=== PATIENT | female | born 1950 | race Caucasian/White ===

== ENCOUNTER → 2023-10-22 09:29 | Outpatient (REF) | payer MEDICARE, OTHER, SELFPAY | LOC: HWRAD 09:29 | PROVIDERS: ATTENDING PHYSICIAN Family Medicine | DX: M85.89 Other specified disorders of bone density and structure, multiple sites (principal) | CPT/HCPCS: 77080 ==

== ENCOUNTER → 2023-12-04 11:42 | Outpatient (REF) | payer MEDICARE, OTHER, SELFPAY | LOC: HWRAD 11:42 | PROVIDERS: ATTENDING PHYSICIAN Internal Medicine Critical Care Medicine; FAMILY PHYSICIAN Family Medicine | DX: R91.1 Solitary pulmonary nodule (principal) | CPT/HCPCS: 71250 ==

== ENCOUNTER → 2024-03-11 14:18 | Outpatient (REF) | payer MEDICARE, OTHER, SELFPAY | LOC: HWWDC 14:18 | PROVIDERS: ATTENDING PHYSICIAN Family Medicine | DX: Z12.31 Encounter for screening mammogram for malignant neoplasm of breast (principal) | CPT/HCPCS: 77063; 77067 ==

== ENCOUNTER → 2024-03-22 09:58 | Outpatient (REF) | payer MEDICARE, OTHER, SELFPAY | LOC: RAD 09:58 | PROVIDERS: ATTENDING PHYSICIAN Specialist; FAMILY PHYSICIAN Family Medicine | DX: N13.1 Hydronephrosis with ureteral stricture, not elsewhere classified (principal) | CPT/HCPCS: 78708; A9539 ==

== ENCOUNTER → 2024-03-24 10:56 | Outpatient (REF) | payer MEDICARE, OTHER, SELFPAY ==
[2024-03-24 12:21] LABS: Urine Albumin Trace (Neg - Trace); Urine Bilirubin 1+ (Negative); Urine Character Clear (Clear); Urine Color Yellow; Urine Glucose Negative (Negative); Urine Ketone Negative (Negative); Urine Leukocyte Trace (Negative); Urine Nitrite Negative (Negative); Urine Occult Blood Negative (Negative); Urine Urobilinogen Negative (Neg - 1+)
[2024-03-24 12:36] LABS: Urine Bacteria Few (Negative); Urine Mucus Moderate; Urine Red Blood Cell 0-2 /HPF (0-2); Urine Squamous Cell 0-2 /LPF (Few); Urine White Cell 0-2 /HPF (0-5)
[2024-03-24 12:37] LABS: % Basophils 1.3 % (0-2); % Immature Granulocytes 0.2 % (0-0.5); % Lymphocytes 15.4 % (20.5-51.1); % Monocytes 8.7 % (1.7-9.3); % Neutrophils 72.4 % (42.2-75.2); Absolute Basophils 0.1 10^3/uL (0-0.2); Absolute Eosinophils 0.1 10^3/uL (0-0.7); Absolute Lymphocytes 0.7 10^3/uL (1.2-3.4); Absolute Monocytes 0.4 10^3/uL (0.1-0.6); Absolute Neutrophils 3.3 10^3/uL (1.4-6.5); Hematocrit 39.8 % (37.0-47.0); Mean Corp Hgb Conc. 35.2 g/dL (33.0-37.0); Mean Corpuscular Hgb 31.6 pg (27.0-31.0); Mean Corpuscular Volume 89.8 fL (81.0-99.0); Mean Platelet Volume 9.9 fL (7.4-10.4); Nucleated Red Blood Cells % 0 %; Platelet Count 140 10^3/uL (130-400); Red Blood Cell Count 4.43 10^6/uL (4.20-5.40); White Blood Cell Count 4.6 10^3/uL (4.8-10.8)
[2024-03-24 12:47] LABS: ALT (SGPT) 17 U/L (0-35); AST (SGOT) 28 U/L (14-36); Albumin 4.8 g/dl (3.5-5.0); Alkaline Phosphatase 68 U/L (38-126); Blood Urea Nitrogen 24 mg/dl (7-17); Carbon Dioxide 22 mmol/L (22-30); Chloride 107 mmol/L (98-107); Glucose 107 mg/dl (70-99); HDL Cholesterol 79 mg/dl; LDL Cholesterol, Calculated 66 mg/dl; Potassium 4.1 mmol/L (3.5-5.1); Sodium 143 mmol/L (135-145); Total Bilirubin 0.9 mg/dl (0.2-1.3); Total Cholesterol 168 mg/dl (50-199); Total Protein 7.1 g/dl (6.3-8.2); Triglyceride 116 mg/dl (10-149); Very Low Density Lipoprotein 23 mg/dl (0-30); eGFR > 60.00
[2024-03-24 13:00] LABS: Free T4 1.17 ng/dl (0.78-2.19); Vitamin D, 25-OH*** 37.5 ng/mL (30-80)
[2024-03-24 13:13] LABS: TSH 1.09 uIU/ml (0.47-4.68)
== END ==
LOC: HWLAB 10:56
PROVIDERS: ATTENDING PHYSICIAN Specialist; FAMILY PHYSICIAN Family Medicine
DX: N20.0 Calculus of kidney (principal); E04.2 Nontoxic multinodular goiter; M85.89 Other specified disorders of bone density and structure, multiple sites; L40.9 Psoriasis, unspecified; A31.0 Pulmonary mycobacterial infection; Z86.73 Personal history of transient ischemic attack (TIA), and cerebral infarction without residual deficits
CPT/HCPCS: 36415; 74018; 80053; 80061; 81003; 81015; 82306; 84439; 84443; 85025

== ENCOUNTER → 2024-04-22 08:25 | Outpatient (REF) | payer MEDICARE, OTHER, SELFPAY | LOC: RST 08:25 | PROVIDERS: ATTENDING PHYSICIAN Family Medicine | DX: R13.12 Dysphagia, oropharyngeal phase (principal) | CPT/HCPCS: 74230; 92611 ==

== ENCOUNTER → 2024-04-27 13:14 | Outpatient (REF) | payer MEDICARE, OTHER, SELFPAY | LOC: HWRAD 13:14 | PROVIDERS: ATTENDING PHYSICIAN Internal Medicine Critical Care Medicine; FAMILY PHYSICIAN Family Medicine; OTHER PHYSICIAN Specialist; REFERRING PHYSICIAN Specialist | DX: A31.0 Pulmonary mycobacterial infection (principal) | CPT/HCPCS: 71250 ==

== ENCOUNTER → 2024-05-06 06:35 | Day surgery (SDC) | payer MEDICARE, OTHER, SELFPAY | LOC: GI 06:35 | PROVIDERS: ATTENDING PHYSICIAN Specialist; FAMILY PHYSICIAN Family Medicine | DX: R13.10 Dysphagia, unspecified (principal); R12 Heartburn; K31.89 Other diseases of stomach and duodenum; K22.89 Other specified disease of esophagus; K21.00 Gastro-esophageal reflux disease with esophagitis, without bleeding | CPT/HCPCS: 43239; 88305; 88342 ==

== ENCOUNTER → 2024-05-18 10:06 | Outpatient (REF) | payer MEDICARE, OTHER, SELFPAY | LOC: HWRCS 10:06 | PROVIDERS: ATTENDING PHYSICIAN Internal Medicine Critical Care Medicine; FAMILY PHYSICIAN Family Medicine | DX: R91.1 Solitary pulmonary nodule (principal) | CPT/HCPCS: 93306 ==

== ENCOUNTER 2024-11-22 06:23 | Day surgery (SDC) | payer MEDICARE, OTHER, SELFPAY ==
[2024-11-16 13:43] VITALS: BMI 32.1
[2024-11-22] VITALS (11 sets, daily range): BP systolic 117–157; BP diastolic 55–82; BMI 32.1
[2024-11-22] MEDS: Pyridium 200 MG PO (11:37)
[2024-11-22] MEDS: NORMOSOL-R/PLASMALYTE-A 1000 IV (11:47)
[2024-11-22] MEDS: HEPARIN 5000 UNITS SC (13:34)
== END 2024-11-22 17:50 | disposition home or self-care (01) ==
LOC: SDS 06:23
PROVIDERS: ATTENDING PHYSICIAN Obstetrics & Gynecology; FAMILY PHYSICIAN Family Medicine
DX: N81.6 Rectocele (principal)
CPT/HCPCS: 57282; 57250; C1713

== ENCOUNTER 2024-12-19 16:34 | Inpatient (IN) | payer MEDICARE, OTHER, SELFPAY ==
[2024-12-19] VITALS (8 sets, daily range): BP systolic 113–150; BP diastolic 55–99; BMI 34.0; BMI 31.7
[2024-12-19] MEDS: TYLENOL 1000 MG PO ×2 (11:50→16:09)
[2024-12-19] MEDS: NSS 1000 IV ×2 (11:51→18:38)
--- NOTE | 2024-12-19 11:51 | ED.GENMED ---
History of Present Illness
General
Chief Complaint: Fever
Source: patient
Exam Limitations: none
Time Seen by Provider: 12/19/24 11:14
Nursing documentation reviewed up to this point in time: agreed with
History of Present Illness
History of Present Illness:
pt is a 74 y/o F with h/o TIA/TGA, kidney stones/staghorn calculus (tea, s/p surgery 2021),
1 mo ago had rectocele surgery by dr jo
has had ongoign urinary leakage since the procedure, which dr. jo is aware of and says likely is just due to swelling/inflammatoin as things heal
but over the past 2-3 days she has had intermittent L flank pain with abdomianl bloating, comes and goes sponateously reminding her of a kidney stone
and now she has a fever to 102, took tylenol at 530 am
developed cough this am
initially staed in triage that she couldn't take a deep breath but she can to me
she is on a blood thinner
pt has not ahd any gross hematuria, hemoptysis, pleuritic cp, leg swelling, vaignl bleeding, rectal bleeding, constipation, vomiting
Past History
Past History
ED Past Medical History: HTN, Hypercholesterolemia and Other (Transient global amnesia)
ED Past Surgical History: Gynecological, Tonsilectomy and Other
Social History
Tobacco: Non-smoker
Personal:
Living: with family
Employment: Retired
Review of Systems
Review of Systems
Allergies reviewed?: Yes
All Other Systems: Not applicable
Phy Exam
Physical Exam
Physical Exam:
GENERAL: Alert , in no apparent distress; FEBRILE
EYE: pupils equal and reactive
NECK: Supple
ENT: o/p clr, mmm.
CARDIAC: Regular rate and rhythm .
LUNGS: Clear breath sounds bilaterally, no acute respiratory distress, no wheezes/rales/rhonchi
ABDOMEN: Soft, mildly distended, nontender, no guarding or rebound, mild L CVA TENDERNESS
region, no secretions, erythema, skin changes,
NEUROLOGICAL: Alert and oriented, no focal neuro deficits
SKIN: Warm and dry, skin intact.
MUSCULOSKELETAL: No edema, well perfused. neg joaquin's sign
PSYCH: Normal and appropriate interaction.
Course
Orders/Labs/Results
Orders:
Orders
12/19/24 11:28
Complete Blood Count/With Diff Urgent
Comprehensive Metabolic Panel Urgent
Lactic Acid Urgent
Blood Culture Urgent
THERESA Source: Blood/Venous
Specimen Description:
Blood Culture Urgent
THERESA Source: Blood/Venous
Specimen Description:
12/19/24 11:41
CT Abd/Pel (IV only)-DH only Urgent
Comment: rectocele surgery 1 mo ago
Reason For Exam: L flank pain x 2days with urine incontinence, feve
Straight cath- Treatment ONCE
0.9% Sodium Chloride 1000 ml [Nss] 1,000 ml IV BOLUS
Acetaminophen [Tylenol] 1,000 mg PO NOW STA
12/19/24 11:42
CR Chest - 2 Views Urgent
Comment:
Reason For Exam: fever,k cough
12/19/24 12:01
COVID-19 Antigen Urgent
Source: Nasal Swab
Urinalysis Reflex To Culture Urgent
Date Specimen was Collected: 12/19/24
Time Specimen was Collected: 11:43
Urine Microscopic Reflex Cult Urgent
Influenza A+B Rapid Molecular Urgent
THERESA Source: Nasal Swab
Specimen Description:
Urine Culture Urgent
THERESA Source: U
Specimen Description:
Date Specimen was Collected: 12/19/24
Time Specimen was Collected: 11:43
12/19/24 12:24
CefTRIAXone [Rocephin] 2,000 mg IV NOW STA
12/19/24 12:32
Sterile Water [Sterile Water For Injection] 20 ml .ROUTE .STK-MED
Abnormal Lab Results
12/19/24 12/19/24
11:28 12:01
MCH 31.1 H pg
(27.0-31.0)
Absolute Neuts (auto) 7.2 H 10^3/uL
(1.4-6.5)
Absolute Lymphs (auto) 0.3 L 10^3/uL
(1.2-3.4)
Neutrophils % 89.1 H %
(42.2-75.2)
Lymphocytes % 4.1 L %
(20.5-51.1)
Chloride 109 H mmol/L
(98-107)
BUN 18 H mg/dl
(7-17)
Glucose 124 H mg/dl
(70-99)
Ur Occult Blood Reflex 4+ A
(Negative)
Leukocyte Esterase Rfl 3+ A
(Negative)
Urine RBC 3-6 A /HPF
(0-2)
Urine WBC (Reflex) 26-30 A /HPF
(0-5)
Urine Bacteria (Reflex) Few A
(Negative)
Urine Albumin (Reflex) 2+ A
(Neg - Trace)
12/19/24 11:28
12/19/24 11:28
Vital Signs
Initial and Last Documented VS:
Initial Vital Signs
Temp Pulse Resp BP Pulse Ox
38.5 C H 87 16 120/86 93
12/19/24 10:49 12/19/24 10:49 12/19/24 10:49 12/19/24 10:49 12/19/24 10:49
Last Documented Vital Signs
Temp Pulse Resp BP Pulse Ox
37.4 C 68 18 130/67 94
12/19/24 12:41 12/19/24 13:00 12/19/24 13:00 12/19/24 14:22 12/19/24 14:22
MDM/Problems Addressed
Differential Diagnosis Includes:
pyelo, infected kidney stone, uti, sepsis, pna, pe
MDM/Problems Addressed:
74 y/o F with h/o rectocele surgery 1 mo ago (sandro)
h/o kidney stones
fever and L flank pain
febrile, normal lactic, wbc normal
ct shows pyelo and ureteritis;
rocephin, cultlured;
*Critical Care Note
Total Time (30-74mins, 75-104mins- exclusive of procedures): Not Applicable
ED Attending Note
-
Portions of this chart may have been created with voice recognition software.� Occasional wrong word or��sound alike� substitutions may have occurred due to the inherent limitations of voice recognition software.
Discharge Plan
Departure
Patient Disposition: Admit
Date of Disposition: 12/19/24
Time of Disposition: 14:30
Presentation/result/management discussed w/ accepting MD/DO: Hospitalist
Patient with high blood pressure during this ER visit?: No
Condition: Fair
Covid-19: Not Applicable
Discharge Problem:
Pyelonephritis
Prescriptions:
No Action
atorvastatin 40 MG tablet
40 mg PO HS
sertraline 100 mg Tablet
100 mg PO DAILY
aspirin-dipyridamole [Aggrenox] 25-200 mg Capsule, Er Multiphase 12 Hr
1 cap PO BID
acetaminophen [Tylenol] 325 mg Tablet
650 mg PO Q6HPRN PRN (Reason: mild pain)
Referrals:
Delmi Bunch MD [Family Provider] -
Interventions
Interventions:
*Risk Screen - Suicide Last Done: 12/19/24 11:26
*General Assessment Last Done: 12/19/24 11:26
*Neglect/Abuse Screening Last Done: 12/19/24 11:26
*ED- Fall Risk Assessment Last Done: 12/19/24 11:26
*ED COVID-19 Vaccine History Last Done: 12/19/24 11:26
RD-Ufsuda-Iawfljownw Assessment Last Done: 12/19/24 11:42
ED- Neurological Assessment Last Done: 12/19/24 11:42
ED-Skin Assessment Last Done: 12/19/24 11:42
Discharge Date and Time
Print Language: KHMER
[2024-12-19 11:55] LABS: % Basophils 0.2 % (0-2); % Eosinophils 0.1 % (0-6); % Immature Granulocytes 0.1 % (0-0.5); % Lymphocytes 4.1 % (20.5-51.1); % Monocytes 6.4 % (1.7-9.3); % Neutrophils 89.1 % (42.2-75.2); Absolute Lymphocytes 0.3 10^3/uL (1.2-3.4); Absolute Monocytes 0.5 10^3/uL (0.1-0.6); Absolute Neutrophils 7.2 10^3/uL (1.4-6.5); Hematocrit 40.8 % (37.0-47.0); Hemoglobin 14.1 g/dL (12.0-16.0); Mean Corp Hgb Conc. 34.6 g/dL (33.0-37.0); Mean Corpuscular Hgb 31.1 pg (27.0-31.0); Mean Corpuscular Volume 89.9 fL (81.0-99.0); Mean Platelet Volume 9.8 fL (7.4-10.4); Nucleated Red Blood Cells % 0 %; Platelet Count 142 10^3/uL (130-400); Red Blood Cell Count 4.54 10^6/uL (4.20-5.40); Red Cell Dist. Width 11.9 % (11.5-14.5); White Blood Cell Count 8.1 10^3/uL (4.8-10.8)
[2024-12-19 11:58] LABS: Lactic Acid 0.9 mmol/L (0.7-2.0)
[2024-12-19 11:59] LABS: ALT (SGPT) 19 U/L (0-35); AST (SGOT) 23 U/L (14-36); Albumin 4.8 g/dl (3.5-5.0); Alkaline Phosphatase 71 U/L (38-126); Blood Urea Nitrogen 18 mg/dl (7-17); Calcium 9.6 mg/dl (8.4-10.2); Carbon Dioxide 22 mmol/L (22-30); Chloride 109 mmol/L (98-107); Estimated Creatinine Clearance 64 ml/min; Glucose 124 mg/dl (70-99); Sodium 139 mmol/L (135-145); Total Bilirubin 0.9 mg/dl (0.2-1.3); Total Protein 7.6 g/dl (6.3-8.2); eGFR > 60.00
[2024-12-19 12:15] LABS: Urine Albumin 2+ (Neg - Trace); Urine Bilirubin Negative (Negative); Urine Character Slightly Cloudy (Clear); Urine Color Yellow; Urine Glucose Negative (Negative); Urine Ketone Negative (Negative); Urine Leukocyte 3+ (Negative); Urine Nitrite Negative (Negative); Urine Occult Blood 4+ (Negative); Urine Specific Gravity 1.015 (<1.030); Urine Urobilinogen Negative (Neg - 1+)
[2024-12-19 12:23] LABS: Urine Bacteria Few (Negative); Urine White Cell 26-30 /HPF (0-5)
[2024-12-19 12:32] LABS: COVID-19 Antigen Negative (Negative)
[2024-12-19] MEDS: ROCEPHIN 2000 MG IV (12:33)
--- NOTE | 2024-12-19 16:08 | HPS.HSE ---
Addendum entered and electronically signed by Brenda Jc MD 12/19/24 18:15:
I personally performed a history and physical exam of the patient and discussed management with the resident. I reviewed the resident's note and agree with the documented findings and plan of care HPI/CC.
GENERAL: well developed, well nourished, female in no apparent distress, cold and wrapped up in blankets
HEENT: NC/AT
HEART: regular rate and rhythm, +S1, +S2
LUNGS : clear to auscultation bilaterally
ABDOM: soft, nontender, nondistended, + bowel sounds
EXT: no cyanosis, clubbing, or edema
NEUROLOGIC: starting to become a bit wifty/confused
: no CVA tenderness
Pyelonephritis with developing sepsis and acute hypoxemic respiratory insufficiency (POA)--admit--follow cultures--cont unasyn/IVF--lactic acid and WBC WNL--CT abdomen: 2 nephroliths within the posterior aspect of the upper pole the left kidney. No
evidence for ureteral calculus bilaterally. Findings suspicious for pyelonephritis and cystitis--supplemental O2 as needed--pain/temp management
Shortness of breath likely due to pain/sepsis� Negative for flu/COVID�CXR unremarkable� Echo 04/2024 (pericardial effusion indication): EF 60 to 65%, mild aortic regurgitation�Supplemental O2, wean as tolerated
Hx of lacunar stroke/transient global amnesia� Continue Aggrenox
Hyperlipidemia- Continue statin
Depression� Continue sertraline
History of lung nodule� Follows with sweatband decorating machine operator outpatient
ALEXANDER� Has not used CPAP in many years� Recommend outpatient follow-up
DVT Proph�Aggrenox, SCDs
Limited DNR�no intubation
Original Note:
Family Physician
-
Family Physician: Delmi Bunch
Chief Complaint
-
Left flank pain
History of Present Illness
This is a 74 year old female patient with PMH of depression, hx of staghorn calculus, transient global amnesia/lacunar infart who presents to the ER with concerns of left sided flank pain and fever. She states that a month ago on 11/22, she
underwent surgery for posterior vaginal wall prolapse. Since then she has not faced any major issues with recovery besides urinary incontinence which her urogynecologist was aware of and sensation of bloating. Then for the past 2-3 days she started
to experience L sided flank pain which was sharp, radiating to the groin and intermittent. She also experienced a low grade fever that was 101 on Friday. She had taken Tylenol and she was symptom free until last night when fever/flank pain had
returned which prompted her to arrive to the hospital. She denies any nausea/vomiting or abdominal pain.
She also states that she has had shortness of breath of the past few years but noticed that it recently had started to worsen over the past few weeks. She denies having sob at rest but is symptomatic when she has to climb a flight of stairs or long
hallway. She had a single brief period of palpitations yesterday but has not experienced this before. She denies any CP, dizziness or lightheadedness.
Medical History
Past Medical History
Past Medical History: Reports CVA, HTN, Hypercholesterolemia, Psychiatric (Depression) and Other (Transient global amnesia, history of staghorn calculus, ALEXANDER, history of lung nodule, history of pericardial effusion)
Past Surgical History: Reports Cholecystectomy and Other (Cataract surgery, repair of vaginal wall prolapse)
Social History
Tobacco: Former Smoker (Smoked for 27 years, 1 pack/day, quit in )
Alcohol: Occasional
Drug: None
Living: Alone (Next-door to family)
Family History
Family History: Not pertinent
Allergies / Home Medications
Allergies reflects when Allergies were last updated in [employer].
Home Medications with original date entered in [employer]
Allergy/Medication List:
Allergies
Allergy/AdvReac Type Severity Reaction Status Date / Time
adhesive tape [Adhesive Tape] Allergy Itching Verified 12/19/24 10:52
azithromycin [From Zithromax] Allergy Hives Verified 12/19/24 10:52
cosmetic Allergy 'PURPLE Verified 12/19/24 10:52
EYE
SHADOW' -
EYE
SWELLING
nickel [Nickel] Allergy sores, Verified 12/19/24 10:52
bleeding
Home Medications
atorvastatin 40 mg tablet 40 mg PO HS High cholesterol 08/04/18
sertraline 100 mg tablet 100 mg PO DAILY Mental Health/Anxiety 02/05/22
acetaminophen 325 mg tablet (Tylenol) 650 mg PO Q6HPRN PRN mild pain 12/19/24
aspirin 25 mg-dipyridamole 200 mg capsule,ext.release 12 hr multiphase 1 cap PO BID 12/19/24
Review of Systems
-
A 12 point ROS was completed and negative except as noted: Yes
Constitutional: Reports Fever
Respiratory: Reports Trouble Breathing
Cardiac: Reports Palpitations (Yesterday)
Abdomen/GI: Denies Abdominal Pain, Nausea or Vomiting
: Reports Flank Pain and Incontinence
Physical Exam
Vital Signs
Vital Signs
Temp Pulse Resp BP Pulse Ox
99.2 F 69 17 130/67 97
12/19/24 15:58 12/19/24 14:45 12/19/24 14:45 12/19/24 14:22 12/19/24 14:45
Physical Exam
General: Well Developed and Fever
HEENT: NormoCephalic and Anicteric
Respiratory: Clear
Cardiac: S1/S2 and Regular Rhythm
GI: Soft, Non Distended and Tender (Mildly tender near B/L groin area)
Musculoskeletal: No Clubbing and No Edema
Skin: Warm and Dry
Neuro: Awake, Alert and Oriented
Laboratory Results
-
12/19/24 11:28
12/19/24 11:28
Laboratory Results
Lactic Acid 0.9 mmol/L (0.7-2.0) 12/19/24 11:28
Total Bilirubin 0.9 mg/dl (0.2-1.3) 12/19/24 11:28
AST 23 U/L (14-36) 12/19/24 11:28
ALT 19 U/L (0-35) 12/19/24 11:28
Alkaline Phosphatase 71 U/L (38-126) 12/19/24 11:28
Impression/Plan
-
IMPRESSION: This is a 74 year old female patient with PMH of depression, hx of staghorn calculus, transient global amnesia/lacunar infart who presents to the ER with concerns of left sided flank pain and fever.
PLAN:
#Pyelonephritis with developing sepsis
#Hypoxia
� Meet sepsis criteria with fever, tachypnea, and pyelonephritis
�Lactic acid wnl, WBC wnl
-CT abdomen:2 nephroliths within the posterior aspect of the upper pole the left kidney. No evidence for ureteral calculus bilaterally. Findings suspicious for pyelonephritis and cystitis
�U/a showed increased WBC and few bacteria--> urine culture pending
� Started broad coverage ABX Unasyn --> blood culture pending
� Continue IVF
� Hypoxia (O2 levels dipping to 89) likely due to sepsis, start supplemental O2 and wean as tolerated
� Pain management with IV Toradol Tylenol and Dilaudid
#Shortness of breath likely due to pain/sepsis
� Negative for flu/COVID
�CXR unremarkable
� EKG ordered due to brief single episode of palpitations yesterday
� Echo 04/2024 (pericardial effusion indication): EF 60 to 65%, mild aortic regurgitation
�Supplemental O2, wean as tolerated
#Hx of lacunar stroke/transient global amnesia
� Continue Aggrenox
#Hyperlipidemia
- Continue statin
#Depression
� Continue sertraline
#History of lung nodule
� Follows with sweatband decorating machine operator outpatient
#ALEXANDER
� Has not used CPAP in many years
� Recommend outpatient follow-up
DVT PPx�Aggrenox, SCDs
Limited DNR�no intubation
--- NOTE | 2024-12-19 16:34 | CM ---
Patient seen at bedside in ED. Patient stated that she lives alone in a [facility] home and stays mostly on the first floor. patient daughter lives next door and is very supportive. Patient uses the [facility] [address]. Patient PCP is Dr. Bunch
and she is planning to go home with family supports, pending medical treatment plan. CM will continue to follow for discharge planning needs.
Plan; home with VN vs family supports pending medical treatment plan
[2024-12-19] MEDS: TORADOL 10 MG IV (17:43)
--- NOTE | 2024-12-19 18:27 | PTCARENOTE ---
Rec'd pt from the ER. Walked to bed. Nss started at 80ml/hr. oriented to room. call huizar in reach
[2024-12-19] MEDS: ZOLOFT PO (19:22)
[2024-12-19] MEDS: AGGRENOX 1 CAPSULE PO (19:22)
[2024-12-19] MEDS: UNASYN IV (19:47)
[2024-12-19] MEDS: LIPITOR 40 MG PO (21:16)
[2024-12-19] MEDS: TUMS CHEWABLE TABLET 400 MG PO (23:00)
[2024-12-19] MEDS: TYLENOL 650 MG PO (23:00)
[2024-12-20] MEDS: UNASYN IV ×3 (02:10→13:08)
[2024-12-20] MEDS: TYLENOL 650 MG PO ×4 (02:51→20:25)
[2024-12-20 07:47] VITALS: BP 103/52
[2024-12-20 07:50] LABS: Blood Urea Nitrogen 14 mg/dl (7-17); Calcium 8.6 mg/dl (8.4-10.2); Carbon Dioxide 23 mmol/L (22-30); Chloride 110 mmol/L (98-107); Estimated Creatinine Clearance 64 ml/min; Glucose 120 mg/dl (70-99); Potassium 3.8 mmol/L (3.5-5.1); Sodium 137 mmol/L (135-145); eGFR > 60.00
[2024-12-20 07:57] LABS: % Basophils 0.2 % (0-2); % Immature Granulocytes 0.7 % (0-0.5); % Lymphocytes 4.1 % (20.5-51.1); Absolute Lymphocytes 0.2 10^3/uL (1.2-3.4); Absolute Monocytes 0.4 10^3/uL (0.1-0.6); Hematocrit 35.2 % (37.0-47.0); Hemoglobin 11.8 g/dL (12.0-16.0); Mean Corp Hgb Conc. 33.5 g/dL (33.0-37.0); Mean Corpuscular Hgb 30.9 pg (27.0-31.0); Mean Corpuscular Volume 92.1 fL (81.0-99.0); Nucleated Red Blood Cells % 0 %; Red Blood Cell Count 3.82 10^6/uL (4.20-5.40); Red Cell Dist. Width 12.2 % (11.5-14.5); White Blood Cell Count 4.6 10^3/uL (4.8-10.8)
[2024-12-20 08:12] LABS: Mean Platelet Volume 9.6 fL (7.4-10.4); Platelet Count 84 10^3/uL (130-400)
[2024-12-20] MEDS: ZOLOFT 100 MG PO (08:17)
[2024-12-20] MEDS: AGGRENOX 1 CAPSULE PO ×2 (08:18→20:25)
[2024-12-20] MEDS: NSS 1000 IV ×2 (08:18→22:51)
--- NOTE | 2024-12-20 08:35 | W.PN.HOSP.TC ---
Addendum entered and electronically signed by Brenda Jc MD 12/20/24 14:59:
I saw and evaluated the patient independently. I reviewed the resident�s note and agree with findings and plan as documented by Dr. Melo.
GENERAL: well developed, well nourished, female in no apparent distress
HEENT: NC/AT--O2 NC in place
HEART: regular rate and rhythm, +S1, +S2
LUNGS : clear to auscultation bilaterally
ABDOM: soft, nontender, nondistended, + bowel sounds
EXT: no cyanosis, clubbing, or edema
NEUROLOGIC: starting to become a bit wifty/confused
: no CVA tenderness
Pyelonephritis with developing sepsis and acute hypoxemic respiratory insufficiency (POA)--urine culture with proteus, blood cultures negative--cont unasyn/IVF--lactic acid and WBC WNL--CT abdomen: 2 nephroliths within the posterior aspect of the
upper pole the left kidney. No evidence for ureteral calculus bilaterally. Findings suspicious for pyelonephritis and cystitis--supplemental O2 as needed--pain/temp management--still with fevers, ordering cooling blanket
Shortness of breath likely due to pain/sepsis� Negative for flu/COVID�-CXR unremarkable� Echo 04/2024 (pericardial effusion indication): EF 60 to 65%, mild aortic regurgitation�Supplemental O2, wean as tolerated
Hx of lacunar stroke/transient global amnesia� Continue Aggrenox--start PPI since toradol given PRN
Hyperlipidemia- Continue statin
Depression� Continue sertraline
History of lung nodule� Follows with automatic car wash attendant outpatient
ALEXANDER� Has not used CPAP in many years� Recommend outpatient follow-up
DVT Proph�Aggrenox, SCDs
Limited DNR�no intubation
Original Note:
Today's Communication/Plan
-
continue IV abx, will narrow pending sensitivities
cooling blanket
Assessment / Plan
Assessment / Plan
IMPRESSION: This is a 74 year old female patient with PMH of depression, hx of staghorn calculus, transient global amnesia/lacunar infart who presents to the ER with concerns of left sided flank pain and fever.
PLAN:
#Pyelonephritis with developing sepsis
#Acute hypoxemic respiratory insufficiency POA
� Meet sepsis criteria on adm with fever, tachypnea, and pyelonephritis
�Lactic acid wnl, WBC wnl
- CT abdomen:2 nephroliths within the posterior aspect of the upper pole the left kidney. No evidence for ureteral calculus bilaterally. Findings suspicious for pyelonephritis and cystitis
- Blood cultures negative
� Urine culture shows proteus, sensitivities pending
� Continue Unasyn
� Continue IVF
- On supplemental o2 of 2L, wean as tolerated
- cooling blanket for continued fever, will add PPI if patient requires another dose of Toradol
� Pain management with IV Toradol, Tylenol and Dilaudid
#Shortness of breath likely due to pain/sepsis
� Negative for flu/COVID
� CXR unremarkable
� EKG: NSR
� Echo 04/2024 (pericardial effusion indication): EF 60 to 65%, mild aortic regurgitation
� On supplemental o2 of 2L, wean as tolerated
#Hx of lacunar stroke/transient global amnesia
� Continue Aggrenox
#Hyperlipidemia
- Continue statin
#Depression
� Continue sertraline
#History of lung nodule
� Follows with automatic car wash attendant outpatient
#ALEXANDER
� Has not used CPAP in many years
� Recommend outpatient follow-up
DVT PPx�Aggrenox, SCDs
Limited DNR�no intubation
Anticipated Discharge: 24 - 48 hours
Subjective/Interval History
-
Date of Service: December 20, 2024
Patient continues to have fever overnight but otherwise has not had worsening flank pain.
Objective Data
-
Labs:
Laboratory Results
12/20/24
06:57
WBC 4.6 L
Hgb 11.8 L
Hct 35.2 L
Plt Count 84 L D
Sodium 137
Potassium 3.8
Chloride 110 H
Carbon Dioxide 23
BUN 14
Creatinine 0.8
Glucose 120 H
Calcium 8.6
Vital Signs:
Vital Signs
Temp Pulse Resp BP Pulse Ox
102.6 F H 85 18 103/52 91
12/20/24 07:47 12/20/24 07:47 12/20/24 07:47 12/20/24 07:47 12/20/24 07:47
I&O
12/19/24 12/20/24 12/21/24
06:59 06:59 06:59
Intake Total 1919
Balance 1919
Review of Systems
-
All other systems: Reviewed and negative
Physical Exam
-
General: Well Developed and Fever
HEENT: Normocephalic and Atraumatic
Respiratory: Clear to Auscultation
Cardiac: Regular Rhythm and S1/S2
GI: Soft, Nontender and Nondistended
Musculoskeletal: No Cyanosis and No Edema
Skin: Warm and Dry
Neuro: Awake, Alert and Oriented
[2024-12-20] MEDS: TORADOL 10 MG IV (09:58)
--- NOTE | 2024-12-20 13:56 | PTOTSP ---
Chart reviewed. Patient received in bed. Patient was educated on PT rationale in the hospital. Patient was asked to participate in session. Notes that she is mobilizing to the bathroom and feels that her biggest limitation right now is 'being
hooked up to all of these things'. Patient notes that she is ambulating without an AD to the bathroom. Patient does not think that she is in need of therapy services while in house and feels that she is at her functional baseline. Educated
patient that if that changes, please have staff reconsult PT. At this time will sign off.
[2024-12-20 15:01] VITALS: BP 113/57
--- NOTE | 2024-12-20 16:00 | W.PN.UPDATE ---
Update Note
Progress Note Update
Informed by nursing that patient continued to have fever, chills but stable BP and HR. Examined and spoke with patient and discussed next treatment steps. With continued fevers, will change antibiotic to cefepime. Will also add PPI due to
patient's use of Toradol. Advised nursing to add cooling blanket. If no improvement in patient's condition, will consider consulting ID
[2024-12-20] MEDS: PROTONIX 40 MG PO (16:52)
[2024-12-20] MEDS: STERILE WATER FOR INJECTION 10 ML IV (16:58)
[2024-12-20] MEDS: MAXIPIME 1000 MG IV (16:58)
[2024-12-20] MEDS: LIPITOR 40 MG PO (20:26)
[2024-12-20 23:11] VITALS: BP 129/62
--- NOTE | 2024-12-20 23:14 | PTCARENOTE ---
pt temperature 101.5 at the start of the shift. tylenol given per prn order. pt did not want to have cooling blanket placed and prefered ice packs. temperature down to 99.6 after tylenol.
[2024-12-21] MEDS: STERILE WATER FOR INJECTION 10 ML IV (04:05)
[2024-12-21] MEDS: MAXIPIME 1000 MG IV (04:05)
[2024-12-21 06:50] LABS: % Basophils 0.3 % (0-2); % Immature Granulocytes 0.3 % (0-0.5); % Lymphocytes 6.1 % (20.5-51.1); % Monocytes 4.8 % (1.7-9.3); % Neutrophils 88.5 % (42.2-75.2); Absolute Lymphocytes 0.2 10^3/uL (1.2-3.4); Absolute Monocytes 0.2 10^3/uL (0.1-0.6); Absolute Neutrophils 2.8 10^3/uL (1.4-6.5); Hematocrit 33.5 % (37.0-47.0); Hemoglobin 11.4 g/dL (12.0-16.0); Mean Corpuscular Hgb 30.7 pg (27.0-31.0); Mean Corpuscular Volume 90.3 fL (81.0-99.0); Nucleated Red Blood Cells % 0 %; Red Blood Cell Count 3.71 10^6/uL (4.20-5.40); White Blood Cell Count 3.1 10^3/uL (4.8-10.8)
[2024-12-21 07:20] LABS: Blood Urea Nitrogen 11 mg/dl (7-17); Calcium 8.2 mg/dl (8.4-10.2); Carbon Dioxide 22 mmol/L (22-30); Chloride 109 mmol/L (98-107); Estimated Creatinine Clearance 73 ml/min; Glucose 114 mg/dl (70-99); Potassium 3.3 mmol/L (3.5-5.1); Sodium 136 mmol/L (135-145); eGFR > 60.00
[2024-12-21 07:33] VITALS: BP 140/64
--- NOTE | 2024-12-21 07:45 | W.PN.HOSP.TC ---
Addendum entered and electronically signed by Brenda Jc MD 12/21/24 15:28:
I saw and evaluated the patient independently. I reviewed the resident�s note and agree with findings and plan as documented by Dr. Melo.
GENERAL: well developed, well nourished, female in no apparent distress
HEENT: NC/AT--off O2
HEART: regular rate and rhythm, +S1, +S2
LUNGS : clear to auscultation bilaterally
ABDOM: soft, nontender, nondistended, + bowel sounds
EXT: no cyanosis, clubbing, or edema
NEUROLOGIC: starting to become a bit wifty/confused
: no CVA tenderness
Pyelonephritis with developing sepsis and acute hypoxemic respiratory insufficiency (POA)--urine culture with proteus, blood cultures negative--unasyn to cefepime, now to ancef per ID, apprec input--can stop IVF--lactic acid and WBC WNL--CT abdomen:
2 nephroliths within the posterior aspect of the upper pole the left kidney. No evidence for ureteral calculus bilaterally. Findings suspicious for pyelonephritis and cystitis--supplemental O2 as needed--pain/temp management--still with fevers,
ordering cooling blanket
Shortness of breath likely due to pain/sepsis� Negative for flu/COVID�-CXR unremarkable� Echo 04/2024 (pericardial effusion indication): EF 60 to 65%, mild aortic regurgitation�- off Supplemental O2
Hx of lacunar stroke/transient global amnesia� Continue Aggrenox--start PPI since toradol given PRN
Hyperlipidemia- Continue statin
Depression� Continue sertraline
History of lung nodule� Follows with canvas worker apprentice outpatient
ALEXANDER� Has not used CPAP in many years� Recommend outpatient follow-up
DVT Proph�Aggrenox, SCDs
Limited DNR�no intubation
Original Note:
Today's Communication/Plan
-
consult ID
stop IVF
Assessment / Plan
Assessment / Plan
IMPRESSION: This is a 74 year old female patient with PMH of depression, hx of staghorn calculus, transient global amnesia/lacunar infart who presents to the ER with concerns of left sided flank pain and fever.
PLAN:
#Pyelonephritis with developing sepsis
#Acute hypoxemic respiratory insufficiency POA
#Thrombocytopenia
� Meet sepsis criteria on adm with fever, tachypnea, and pyelonephritis
�Lactic acid wnl, WBC wnl
- CT abdomen:2 nephroliths within the posterior aspect of the upper pole the left kidney. No evidence for ureteral calculus bilaterally. Findings suspicious for pyelonephritis and cystitis
- Blood cultures negative
� Urine culture shows proteus
� Continue Cefepime
�Discontinued IVF
- On supplemental o2 of 2L, wean as tolerated
- continue ice packs
� Pain management with IV Toradol (added PPI), Tylenol and Dilaudid
- WBC decreased to 3.5, platelet 84 -- ?infection effect/abx drug reaction
- consulted ID as continued fevers, plt drop
#Recent vaginal wall prolapse surgery with episode of rectal bleed
- Recent rectocele surgery on 11/22
- follows with Dr.Soriano COVARRUBIAS (made aware of patient hospitalization)
- Pt states she had sporadic episodes of of rectal bleeds after surgery
- Hb stable
#Shortness of breath likely due to pain/sepsis
� Negative for flu/COVID
� CXR unremarkable
� EKG: NSR
� Echo 04/2024 (pericardial effusion indication): EF 60 to 65%, mild aortic regurgitation
� On supplemental o2 of 2L, wean as tolerated
#Hx of lacunar stroke/transient global amnesia
� Continue Aggrenox
#Hyperlipidemia
- Continue statin
#Depression
� Continue sertraline
#History of lung nodule
� Follows with canvas worker apprentice outpatient
#ALEXANDER
� Has not used CPAP in many years
� Recommend outpatient follow-up
DVT PPx�Aggrenox, SCDs
Limited DNR�no intubation
Anticipated Discharge: 24 - 48 hours
Subjective/Interval History
-
Date of Service: December 21, 2024
patient had a fever this morning, otherwise did not have any worsening flank pain. Admit to episode to rectal bleed today on pad where she saw 'smear' of blood
Objective Data
-
Labs:
Laboratory Results
12/21/24
05:52
WBC 3.1 L
Hgb 11.4 L
Hct 33.5 L
Plt Count Pending
Sodium 136
Potassium 3.3 L
Chloride 109 H
Carbon Dioxide 22
BUN 11
Creatinine 0.7
Glucose 114 H
Calcium 8.2 L
Vital Signs:
Vital Signs
Temp Pulse Resp BP Pulse Ox
101.4 F H 74 18 140/64 92
12/21/24 07:33 12/21/24 07:33 12/21/24 07:33 12/21/24 07:33 12/21/24 07:33
I&O
12/20/24 12/21/24 12/22/24
06:59 06:59 06:59
Intake Total 1919 1440 / 1440
Balance 1919 1440 / 1440
Review of Systems
-
All other systems: Reviewed and negative
Physical Exam
-
General: Well Developed and Fever
HEENT: Normocephalic and Atraumatic
Respiratory: Clear to Auscultation
Cardiac: Regular Rhythm and S1/S2
GI: Soft, Nontender and Nondistended
Musculoskeletal: No Cyanosis and No Edema
Skin: Warm and Dry
Neuro: Awake, Alert and Oriented
[2024-12-21] MEDS: TYLENOL 650 MG PO ×2 (08:34→17:29)
[2024-12-21] MEDS: KCL 40 MEQ PO (08:34)
[2024-12-21] MEDS: PROTONIX 40 MG PO (08:34)
[2024-12-21] MEDS: ZOLOFT 100 MG PO (08:34)
[2024-12-21] MEDS: AGGRENOX 1 CAPSULE PO ×2 (08:34→20:42)
[2024-12-21 09:09] LABS: Mean Platelet Volume 9.7 fL (7.4-10.4); Platelet Count 90 10^3/uL (130-400)
[2024-12-21] MEDS: NSS IV (10:12)
--- NOTE | 2024-12-21 11:17 | CM ---
Patient seen at bedside with physicians and patient daughter on . Patient states that she does not anticipate needs for discharge at this time and did not have any further questions. CM will continue to follow for discharge planning needs.
Plan; home with family supports no vn at this time.
--- NOTE | 2024-12-21 14:28 | CON.ID ---
Consultation
-
Date/Time Consultation Requested: 12/21/2024 0827
Date/Time Consultation Performed: 12/21/2024 1355
Requesting Provider: Dr. Melo
Performing Provider: Dr. Louie
Reason for Consultation: Fever
Chief Complaint / Past History
History of Present Illness
Yasmine Mancuso is a 74-year-old female being evaluated at the request of Dr. Melo regarding fever. History is obtained from chart review, along with patient interview.
The patient has a significant past medical history of nephrolithiasis, and underwent rectocele surgery on 11/22/2024. She reports that since that time she has done overall well, but had noted some urinary leakage since the surgery. She reports that
she developed 2 to 3 days of left flank discomfort, along with some bloating and some comfort. She admits to some incontinence when standing, especially when getting out of bed. She notes the development of left flank discomfort beginning
approximately 4 days ago, and thereafter developed some fever which improved over the day. The next day she notes that she was feeling somewhat improved, but then began to feel ill again, 2 days ago she presented to the emergency room for further
evaluation, and was found to be febrile to [address] imaging revealed suspicion for left-sided pyelonephritis, and cultures revealed growth of Proteus. Despite antibiotics, fever has persisted, and Infectious Diseases has been asked to
comment upon further antibiotic therapy.
At this point in time the patient reports that left flank discomfort has improved, and she denies any other pain. She notes minimal dysuria at this time.
Past History
Additional Past Medical History:
TIA/transient global amnesia
HTN
HLD
Nephrolithiasis
Hx INGA
Additional Past Surgical History:
Rectocele surgery
Tonsillectomy
Nephrolithiasis surgery
Allergy History:
adhesive tape [Adhesive Tape] Allergy (Verified 12/19/24 10:52)
Itching
azithromycin [From Zithromax] Allergy (Verified 12/19/24 10:52)
Hives
cosmetic Allergy (Verified 12/19/24 10:52)
'PURPLE EYE SHADOW' - EYE SWELLING
nickel [Nickel] Allergy (Verified 12/19/24 10:52)
sores, bleeding
Medications Reviewed: Yes
Current Antibiotics:
Cefepime 1 g IV every 12 hours
Social History
Tobacco: Former Smoker
Alcohol: None
Drug: None
Personal:
Employment: Retired
Family History
Family History: Not Pertinent
Review of Systems
Vital Signs
Temp Pulse Resp BP Pulse Ox
101.4 F H 74 18 140/64 92
12/21/24 07:33 12/21/24 07:33 12/21/24 07:33 12/21/24 07:33 12/21/24 07:33
Physical Exam
Physical Exam
Constitutional: No Acute Distress, Comfortable and Non-toxic
Eyes: No Conjunctival Hemorrhage and Sclera Anicteric
Oral: No Thrush and No Ulcers
Cardiovascular: Regular Rate and S1/S2; Negative S3/S4
Pulmonary: Clear; Negative Wheezes or Rales
Gastrointestinal: Soft, Non Tender, Non Distended and Normal Bowel Sounds
Genito-Urinary: Negative Suprapubic Tenderness or CVA Tenderness
Extremities: Edema; Negative Cyanosis or Erythema
Neurological: Awake and Alert
Psychological: Calm
.
Lab / Diagnostic Study Results
12/21/24 05:52
12/21/24 05:52
Abs Immat Gran (auto) 0.0 10^3/uL (0-0.05) 12/21/24 05:52
Absolute Neuts (auto) 2.8 10^3/uL (1.4-6.5) 12/21/24 05:52
Absolute Lymphs (auto) 0.2 10^3/uL (1.2-3.4) L 12/21/24 05:52
Absolute Monos (auto) 0.2 10^3/uL (0.1-0.6) 12/21/24 05:52
Absolute Basos (auto) 0.0 10^3/uL (0-0.2) 12/21/24 05:52
Immature Gran % 0.3 % (0-0.5) 12/21/24 05:52
Neutrophils % 88.5 % (42.2-75.2) H 12/21/24 05:52
Lymphocytes % 6.1 % (20.5-51.1) L 12/21/24 05:52
Monocytes % 4.8 % (1.7-9.3) 12/21/24 05:52
Eosinophils % 0.0 % (0-6) 12/21/24 05:52
Basophils % 0.3 % (0-2) 12/21/24 05:52
Lactic Acid 0.9 mmol/L (0.7-2.0) 12/19/24 11:28
Ur Squamous Epith Cells 3-5 /LPF (Few) 12/19/24 12:01
Microbiology Results
Micro:
12/19/24 11:28 Blood Culture - Preliminary
Blood/Venous No Growth in 48 hours- Final report to follow
12/19/24 11:28 Blood Culture - Preliminary
Blood/Venous No Growth in 48 hours- Final report to follow
12/19/24 12:01 Urine Culture - Final
Urine Proteus mirabilis
12/19/24 12:01 Influenza Types A & B (DOE) - Final
Nasal Swab Negative for Influenza A & B, NAAT
Negative results must be combined with clinical observations
and patient history.
Nucleic Acid Amplification test (NAAT)performed on the
[employer] platform.
Imaging:
12/19/2024 CT abdomen/pelvis with IV contrast: Two nephroliths within the posterior aspect of the upper pole the left kidney. No evidence for ureteral calculus bilaterally. Heterogeneous enhancement of the left kidney, raising concern for
pyelonephritis. Please correlate clinically. There is also slight thickening of the wall the urothelium within the left kidney and left renal pelvis, raising concern for infection/ascending ureteritis. Bladder wall appears mildly thickened and
trabeculated. Please correlate with any symptoms that would suggest cystitis. Small tract of soft tissue and air density extending from the right posterior junction of the vagina and cervix to the right levator ani, a new finding since previous CT
examination. This may represent an area of scarring from recent rectocele repair. No evidence for a drainable collection at this time. The cecum is mildly distended with transverse dimension of 6.2 cm. The appendix is not confidently identified,
with no CT findings to suggest appendicitis. No evidence for bowel obstruction or free intraperitoneal air. See full dictation for additional detail. Film personally viewed.
Assessment / Plan
Left-sided pyelonephritis
Complicated urinary tract infection secondary to Proteus mirabilis
Fever
Normal white count with left shift
TIA/transient global amnesia
HTN
HLD
Nephrolithiasis
Hx INGA
Recommendations:
Urine cultures reveal presence of Proteus mirabilis, resistant only to nitrofurantoin and tetracycline.
Given pyelonephritis, ongoing fever would not be unexpected even on appropriate antibiotics, and may take several days to trend down. Ongoing fever in this context is due to the overall inflammatory process, and not secondary to a failure of
antimicrobial therapy.
Given sensitivities of the recovered isolate, transition antibiotic therapy to cefazolin 2 g IV every 8 hours.
Monitor white count and temperature curve.
Monitor pending blood cultures to ensure no bacteremia.
[2024-12-21 15:48] VITALS: BP 129/68
[2024-12-21] MEDS: ANCEF 10 IV (16:09)
[2024-12-21] MEDS: LIPITOR 40 MG PO (20:42)
[2024-12-21 23:38] VITALS: BP 123/69
[2024-12-22] MEDS: ANCEF 10 IV ×3 (00:14→15:25)
[2024-12-22] MEDS: TYLENOL 650 MG PO (00:24)
[2024-12-22 07:00] VITALS: BP 126/77
--- NOTE | 2024-12-22 07:25 | W.PN.HOSP.TC ---
Addendum entered and electronically signed by Brenda Jc MD 12/22/24 17:37:
I saw and evaluated the patient independently. I reviewed the resident�s note and agree with findings and plan as documented by Dr. Melo.
GENERAL: well developed, well nourished, female in no apparent distress
HEENT: NC/AT--off O2
HEART: regular rate and rhythm, +S1, +S2
LUNGS : clear to auscultation bilaterally
ABDOM: soft, nontender, nondistended, + bowel sounds
EXT: no cyanosis, clubbing, or edema
NEUROLOGIC: starting to become a bit wifty/confused
: no CVA tenderness
Pyelonephritis with developing sepsis and acute hypoxemic respiratory insufficiency (POA)--urine culture with proteus, blood cultures negative--unasyn to cefepime, now to ancef per ID, apprec input--can stop IVF--lactic acid and WBC WNL--CT abdomen:
Findings suspicious for pyelonephritis and cystitis--off supplemental O2 as needed--pain/temp management--cont ancef today and change to oral ABX tomorrow and complete 14 day course total
pancytopenia--not neutropenic--if counts still low after adequate infection treatment and recovery, would refer to hematology for pancytopenia workup
Shortness of breath likely due to pain/sepsis� Negative for flu/COVID�-CXR unremarkable� Echo 04/2024 (pericardial effusion indication): EF 60 to 65%, mild aortic regurgitation�- off Supplemental O2
Hx of lacunar stroke/transient global amnesia� Continue Aggrenox--start PPI since toradol given PRN
Hyperlipidemia- Continue statin
Depression� Continue sertraline
History of lung nodule� Follows with senior security analyst outpatient
ALEXANDER� Has not used CPAP in many years� Recommend outpatient follow-up
DVT Proph�Aggrenox, SCDs
Limited DNR�no intubation
Original Note:
Today's Communication/Plan
-
continue ancef
Assessment / Plan
Assessment / Plan
IMPRESSION: This is a 74 year old female patient with PMH of depression, hx of staghorn calculus, transient global amnesia/lacunar infart who presents to the ER with concerns of left sided flank pain and fever.
PLAN:
#Pyelonephritis with developing sepsis
#Acute hypoxemic respiratory insufficiency POA
#Pancytopenia- suspected due to infection
� Meet sepsis criteria on adm with fever, tachypnea, and pyelonephritis
�Lactic acid wnl, WBC wnl
- CT abdomen:2 nephroliths within the posterior aspect of the upper pole the left kidney. No evidence for ureteral calculus bilaterally. Findings suspicious for pyelonephritis and cystitis
- Blood cultures negative
� Urine culture shows proteus
- On supplemental o2 of 2L, wean as tolerated
- continue ice packs
� Pain management with IV Toradol (added PPI), Tylenol and Dilaudid
- WBC decreased to 3.5, platelet 84 -- ?infection effect/abx drug reaction
- plt count improving, no neutropenia
- if pancytopenia worsening, will consider heme consult otherwise will have patient do OP workup after infection resolves
- consulted ID, appreciated
- Continue Ancef, will transition to oral abx on discharge
#Recent vaginal wall prolapse surgery with episode of rectal bleed
- Recent rectocele surgery on 11/22
- follows with OP (made aware of patient hospitalization)
- Pt states she had sporadic episodes of of rectal bleeds after surgery
- Hb stable
#Shortness of breath likely due to pain/sepsis
� Negative for flu/COVID
� CXR unremarkable
� EKG: NSR
� Echo 04/2024 (pericardial effusion indication): EF 60 to 65%, mild aortic regurgitation
� On supplemental o2 of 2L, wean as tolerated
#Hx of lacunar stroke/transient global amnesia
� Continue Aggrenox
#Hyperlipidemia
- Continue statin
#Depression
� Continue sertraline
#History of lung nodule
� Follows with senior security analyst outpatient
#ALEXANDER
� Has not used CPAP in many years
� Recommend outpatient follow-up
DVT PPx�Aggrenox, SCDs
Limited DNR�no intubation
Anticipated Discharge: 24 - 48 hours
Subjective/Interval History
-
Date of Service: December 22, 2024
No fevers this AM. Comfortable in bed.
Objective Data
-
Labs:
Laboratory Results
12/22/24
06:16
WBC Pending
Hgb Pending
Hct Pending
Plt Count Pending
Sodium Pending
Potassium Pending
Chloride Pending
Carbon Dioxide Pending
BUN Pending
Creatinine Pending
Glucose Pending
Calcium Pending
Vital Signs:
Vital Signs
Temp Pulse Resp BP Pulse Ox
98.1 F 64 12 123/69 94
12/21/24 23:38 12/21/24 23:38 12/21/24 23:38 12/21/24 23:38 12/21/24 23:38
I&O
12/21/24 12/22/24 12/23/24
06:59 06:59 06:59
Intake Total 1440 / 1440 1200 / 1200
Balance 1440 / 1440 1200 / 1200
Review of Systems
-
All other systems: Reviewed and negative
[2024-12-22 07:33] LABS: % Basophils 0.4 % (0-2); % Eosinophils 2.1 % (0-6); % Immature Granulocytes 0.4 % (0-0.5); % Lymphocytes 16.7 % (20.5-51.1); % Monocytes 12.1 % (1.7-9.3); % Neutrophils 68.3 % (42.2-75.2); Absolute Eosinophils 0.1 10^3/uL (0-0.7); Absolute Lymphocytes 0.4 10^3/uL (1.2-3.4); Absolute Monocytes 0.3 10^3/uL (0.1-0.6); Absolute Neutrophils 1.6 10^3/uL (1.4-6.5); Hematocrit 33.9 % (37.0-47.0); Hemoglobin 11.4 g/dL (12.0-16.0); Mean Corp Hgb Conc. 33.6 g/dL (33.0-37.0); Mean Corpuscular Hgb 30.4 pg (27.0-31.0); Mean Corpuscular Volume 90.4 fL (81.0-99.0); Mean Platelet Volume 9.9 fL (7.4-10.4); Nucleated Red Blood Cells % 0 %; Platelet Count 99 10^3/uL (130-400); Red Blood Cell Count 3.75 10^6/uL (4.20-5.40); White Blood Cell Count 2.4 10^3/uL (4.8-10.8)
[2024-12-22 08:10] LABS: Blood Urea Nitrogen 11 mg/dl (7-17); Calcium 8.6 mg/dl (8.4-10.2); Carbon Dioxide 25 mmol/L (22-30); Chloride 113 mmol/L (98-107); Estimated Creatinine Clearance 64 ml/min; Glucose 127 mg/dl (70-99); Potassium 4.2 mmol/L (3.5-5.1); Sodium 143 mmol/L (135-145); eGFR > 60.00
[2024-12-22] MEDS: AGGRENOX 1 CAPSULE PO ×2 (08:13→20:54)
[2024-12-22] MEDS: PROTONIX 40 MG PO (08:13)
[2024-12-22] MEDS: ZOLOFT 100 MG PO (08:14)
--- NOTE | 2024-12-22 08:59 | VATNOTE ---
VAT rounds: pt reports that there is soreness and 'a bump' at the site of an IV that was taken out 'a couple of days ago' in her R antecubital fossa. Bump palpated by this RN, no redness noted, pt reports soreness with palpation. Heat applied, pt
reports improvement in discomfort with heat application. Will continue to monitor.
--- NOTE | 2024-12-22 11:25 | PN.CDI ---
CDI
- -
CDI:
Physician Documentation Request
Admit Date: 12/19/24 16:34
Dear Doctor Kameron,
Clinical Indicators:
Patient admitted with Sepsis due to pyelonephritis.
12/21 PN, 'Thrombocytopenia...WBC decreased to 3.5, platelet 84 -- ?infection effect/abx drug reaction'
WBC, RBC, Plt trend:
12/20/24 12/21/24
06:57 05:52
WBC 4.6 L 3.1 L
RBC 3.82 L 3.71 L
Plt Count 84 L D 90 L
Based on the above, could you clarify in the progress notes, the appropriate diagnosis, if significant, that supports the above abnormalities and additional evaluation, monitoring and/or treatment rendered:
Pancytopenia
Thrombocytopenia only
Other, please specify
Use of terms such as suspected, likely, concern for, or probable (associated with a specific diagnosis that is being evaluated, monitored, or treated as if it exists) are acceptable and can be coded in the inpatient setting, when documented at the
time of discharge.
Thank you,
ADELINE Rodriguez RN
CDI Specialist
available via tiger text
Please use your independent medical judgment in providing your response.
[2024-12-22 15:00] VITALS: BP 133/64
--- NOTE | 2024-12-22 16:05 | DOWNTIME ---
There was a [employer] Downtime on 12/22/2024 from 1230 to 12/22/2024 at 1550. Downtime documentation of patient's care, including medication administrations, has been reconciled in the electronic record per guidelines. Refer to the
patient's paper chart under the miscellaneous tab to see printed paper medication records and downtime forms.
--- NOTE | 2024-12-22 16:18 | CM ---
Patient seen at bedside with physicians, and patient daughter in room. Plan for discharge home tomorrow. Patient does not fell that she needs VN at this time. CM will continue to follow for discharge planning needs. CM will continue to follow for
discharge planning needs.
Plan; home with no needs
--- NOTE | 2024-12-22 16:20 | W.PN.ID1 ---
Date of Service
Date of Service: December 22, 2024
Today's Communication
Continue abx. See below...
Assessment / Plan
Left-sided pyelonephritis
Complicated urinary tract infection secondary to Proteus mirabilis
Fever
Normal white count with left shift
TIA/transient global amnesia
HTN
HLD
Nephrolithiasis
Hx INGA
Recommendations:
Urine cultures with Proteus mirabilis, resistant only to nitrofurantoin and tetracycline.
Temps improved.
Continue cefazolin 2 g IV every 8 hours for an additional day then transition to oral cephalexin, to complete a full 14-day course of therapy.
Monitor white count and temperature curve.
Monitor pending blood cultures to ensure no bacteremia; cultures thus far NGTD.
����������������������������������������������������������
Chief Complaint
-: UTI
Subjective / Review of Systems
Patient seen and examined. Reports feeling improved today. Denies dysuria. No flank discomfort.
Vital Signs / Physical Exam
Vital Signs
Vital Signs
Temp Pulse Resp BP Pulse Ox
98.8 F 59 16 133/64 95
12/22/24 15:00 12/22/24 15:00 12/22/24 15:00 12/22/24 15:00 12/22/24 15:00
Physical Exam
Constitutional: No Acute Distress, Comfortable and Non-toxic
Eyes: Sclera Anicteric
Cardiovascular: S1/S2; Negative S3/S4
Pulmonary: Clear and Non Labored
Gastrointestinal: Soft, Non Distended and Normal Bowel Sounds
Genito-Urinary: Negative CVA Tenderness
Extremities: Negative Edema, Cyanosis or Erythema
Neurological: Awake, Alert and Other
Psychological: Calm
Objective Data
Lab Data
Lab Results
12/22/24 06:16
12/22/24 06:16
Estimated Creat Clear 64 ml/min 12/22/24 06:16
Lactic Acid 0.9 mmol/L (0.7-2.0) 12/19/24 11:28
Total Bilirubin 0.9 mg/dl (0.2-1.3) 12/19/24 11:28
AST 23 U/L (14-36) 12/19/24 11:28
ALT 19 U/L (0-35) 12/19/24 11:28
Alkaline Phosphatase 71 U/L (38-126) 12/19/24 11:28
Most recent labs reviewed.
Micro Results:
12/19/24 11:28 Blood Culture - Preliminary
Blood/Venous No Growth in 72 hours- Final report to follow
12/19/24 11:28 Blood Culture - Preliminary
Blood/Venous No Growth in 72 hours- Final report to follow
12/19/24 12:01 Urine Culture - Final
Urine Proteus mirabilis
12/19/24 12:01 Influenza Types A & B (DOE) - Final
Nasal Swab Negative for Influenza A & B, NAAT
Negative results must be combined with clinical observations
and patient history.
Nucleic Acid Amplification test (NAAT)performed on the
[employer] platform.
Urine Culture Final 12/19/2024
CC: Greater than 100,000 CFU/ML Proteus mirabilis
Organism 1 Proteus mirabilis
1. Proteus mirabilis
M.I.C. RX
--------- ---
Amoxicillin/Potas. Clavulanate <=8/4 S
Ampicillin <=8 S
Ampicillin/Sulbactam <=4/2 S
Aztreonam <=4 S
Cefazolin <=2 S
Ertapenem <=0.5 S
Ciprofloxacin <=0.25 S
Gentamicin <=2 S
Meropenem <=1 S
Nitrofurantoin-Urine Only >64 R
Piperacillin/Tazobactam <=8 S
Tetracycline >8 R
Tobramycin 4 S
Trimethoprim/Sulfamethoxazole <=2/38 S
Imaging:
12/19/2024 CT abdomen/pelvis with IV contrast: Two nephroliths within the posterior aspect of the upper pole the left kidney. No evidence for ureteral calculus bilaterally. Heterogeneous enhancement of the left kidney, raising concern for
pyelonephritis. Please correlate clinically. There is also slight thickening of the wall the urothelium within the left kidney and left renal pelvis, raising concern for infection/ascending ureteritis. Bladder wall appears mildly thickened and
trabeculated. Please correlate with any symptoms that would suggest cystitis. Small tract of soft tissue and air density extending from the right posterior junction of the vagina and cervix to the right levator ani, a new finding since previous CT
examination. This may represent an area of scarring from recent rectocele repair. No evidence for a drainable collection at this time. The cecum is mildly distended with transverse dimension of 6.2 cm. The appendix is not confidently identified,
with no CT findings to suggest appendicitis. No evidence for bowel obstruction or free intraperitoneal air. See full dictation for additional detail. Film personally viewed.
[2024-12-22] MEDS: LIPITOR 40 MG PO (20:54)
[2024-12-22 23:00] VITALS: BP 120/69
[2024-12-23] MEDS: ANCEF 10 IV ×2 (00:27→09:34)
[2024-12-23 07:00] VITALS: BP 120/96
--- NOTE | 2024-12-23 07:27 | W.PN.HOSP.TC ---
Today's Communication/Plan
-
Transition to Keflex on discharge
Assessment / Plan
Assessment / Plan
IMPRESSION: This is a 74 year old female patient with PMH of depression, hx of staghorn calculus, transient global amnesia/lacunar infart who presents to the ER with concerns of left sided flank pain and fever.
PLAN:
#Pyelonephritis with developing sepsis
#Acute hypoxemic respiratory insufficiency POA
#Pancytopenia- suspected due to infection
� Meet sepsis criteria on adm with fever, tachypnea, and pyelonephritis
�Lactic acid wnl, WBC wnl
- CT abdomen:2 nephroliths within the posterior aspect of the upper pole the left kidney. No evidence for ureteral calculus bilaterally. Findings suspicious for pyelonephritis and cystitis
- Blood cultures negative
� Urine culture shows proteus
- On supplemental o2 of 2L, wean as tolerated
- continue ice packs
� Pain management with IV Toradol (added PPI), Tylenol and Dilaudid
- WBC decreased to 3.5, platelet 84 -- ?infection effect/abx drug reaction
- plt count improving, no neutropenia
- Outpatient pancytopenia workup recommended if it does not resolve on repeat CBC after discharge
- consulted ID, appreciated
- Continue Ancef, will transition to Keflex on discharge for full 14-day course
- Follow-up recommended for urology post discharge
#Recent vaginal wall prolapse surgery with episode of rectal bleed
- Recent rectocele surgery on 11/22
- follows with Dr.Soriano COVARRUBIAS (made aware of patient hospitalization)
- Pt states she had sporadic episodes of of rectal bleeds after surgery
- Hb stable
#Shortness of breath likely due to pain/sepsis
� Negative for flu/COVID
� CXR unremarkable
� EKG: NSR
� Echo 04/2024 (pericardial effusion indication): EF 60 to 65%, mild aortic regurgitation
� O2 weaned off
#Hx of lacunar stroke/transient global amnesia
� Continue Aggrenox
#Hyperlipidemia
- Continue statin
#Depression
� Continue sertraline
#History of lung nodule
� Follows with laboratory scientist outpatient
#ALEXANDER
� Has not used CPAP in many years
� Recommend outpatient follow-up
DVT PPx�Aggrenox
Limited DNR�no intubation
Anticipated Discharge: Within 24 hours
Subjective/Interval History
-
Date of Service: December 23, 2024
Patient feels well overall, has no acute concerns
Objective Data
-
Labs:
Laboratory Results
12/23/24
07:09
WBC Pending
Hgb Pending
Hct Pending
Plt Count Pending
Sodium Pending
Potassium Pending
Chloride Pending
Carbon Dioxide Pending
BUN Pending
Creatinine Pending
Glucose Pending
Calcium Pending
Vital Signs:
Vital Signs
Temp Pulse Resp BP Pulse Ox
98.4 F 64 14 120/69 93
12/22/24 23:00 12/22/24 23:00 12/22/24 23:00 12/22/24 23:00 12/22/24 23:00
I&O
12/22/24 12/23/24 12/24/24
06:59 06:59 06:59
Intake Total 1200 / 1200 1440 / 1440
Balance 1200 / 1200 1440 / 1440
Review of Systems
-
All other systems: Reviewed and negative
Physical Exam
-
General: Well Developed and Fever
HEENT: Normocephalic and Atraumatic
Respiratory: Clear to Auscultation
Cardiac: Regular Rhythm and S1/S2
GI: Soft, Nontender and Nondistended
Musculoskeletal: No Cyanosis and No Edema
Skin: Warm and Dry
Neuro: Awake, Alert and Oriented
--- NOTE | 2024-12-23 07:27 | W.DCSUMMARY ---
Discharge Summary
Discharge Data
Date of Admission: 12/19/24
Date of Discharge: 12/23/24
-
Pending Results: No
Hospital Course
Discharging Physician : Dr.Janak Cruz,
Disposition : Home
Primary care physician : Dr.Karen Katie Bunch
Principal Discharge diagnosis : Pyelonephritis
Chronic Discharge diagnosis : Depression, hx of staghorn calculus, transient global amnesia/lacunar infarct
Hospital Course : This is a 74 year old female patient with PMH of depression, hx of staghorn calculus, transient global amnesia/lacunar infarct who presents to the ER with concerns of left sided flank pain and fever. In the ER, CT abdomen imaging
showed findings suspicious of pyelonephritis with non obstructing calculi. She did meet criteria for sepsis on admission and she was then started on IV antibiotics of Unasyn. Urine culture showed Proteus. Patient started to have continued fevers
and chills and antibiotic then changed to IV cefepime and supportive care for fever was started. Due to the ongoing fevers despite antibiotic treatment, infectious disease was consulted. ID started patient on IV cefazolin. Continued fevers were
thought to be due to overall inflammatory process of pyelonephritis rather than failure of antimicrobial therapy. She also had shortness of breath that was secondary to sepsis and was initially on supplemental O2 which was later weaned off. Labs
also showed findings of pancytopenia which were likely due to the ongoing infection but will have patient do repeat CBC outpatient. Patient's condition started to improve and she was fever free for over 24 hours. She was deemed stable for
discharge and was transition to oral antibiotic to finish 14-day course. She was also advised to follow-up with her PCP with repeat CBC in 1 week and follow-up with urologist.
Important imaging findings :
CT abdomen 12/19: 2 nephroliths within the posterior aspect of the upper pole the left kidney. No evidence for ureteral calculus bilaterally.Heterogeneous enhancement of the left kidney, raising concern for pyelonephritis.Small tract of soft tissue
and air density extending from the right posterior junction of the vagina and cervix to the right levator ani, a new finding since previous CT examination. This may represent an area of scarring from recent rectocele repair. No evidence for a
drainable collection at this time.The cecum is mildly distended with transverse dimension of 6.2 cm. The appendix is not confidently identified, with no CT findings to suggest appendicitis. No evidence for bowel obstruction or free intraperitoneal
air.
Discharge Plan
-
Patient Disposition: Home (Routine Discharge)
Discharge Diagnosis/Procedures: Acute Pyelonephritis
Condition: Fair
Diet: Low Cholesterol
Activity: As tolerated
Driving Restrictions: As prior to admission
Bathing Restrictions: None
Blood Work: CBC in 1 week
Referrals:
Amado Guadalupe Jr., MD [Active, Urology] - in two to three weeks
Delmi Bunch MD [Family Provider, Family Practice] - in one week
Prescriptions:
New
cephalexin 500 mg capsule
500 mg PO BID 9 Days Qty: 18 0RF
Rx Instructions:
Continue until 01/01
Continued
atorvastatin 40 MG tablet
40 mg PO HS
sertraline 100 mg Tablet
100 mg PO DAILY
aspirin-dipyridamole 25-200 mg Capsule, Er Multiphase 12 Hr
1 cap PO BID
acetaminophen [Tylenol] 325 mg Tablet
650 mg PO Q6HPRN PRN (Reason: mild pain)
Discharge Orders:
Discharge Patient (As Directed); Ordered 12/23/24
Ordered By: Trena Melo
Discharge Date and Time
Discharge Date/Time: 12/23/24 11:46
Print Language: TURKMEN
[2024-12-23 07:50] LABS: % Basophils 0.7 % (0-2); % Eosinophils 2.2 % (0-6); % Immature Granulocytes 0.7 % (0-0.5); % Lymphocytes 17.1 % (20.5-51.1); % Monocytes 11.6 % (1.7-9.3); % Neutrophils 67.7 % (42.2-75.2); Absolute Eosinophils 0.1 10^3/uL (0-0.7); Absolute Lymphocytes 0.5 10^3/uL (1.2-3.4); Absolute Monocytes 0.3 10^3/uL (0.1-0.6); Absolute Neutrophils 1.9 10^3/uL (1.4-6.5); Hematocrit 31.4 % (37.0-47.0); Hemoglobin 10.5 g/dL (12.0-16.0); Mean Corp Hgb Conc. 33.4 g/dL (33.0-37.0); Mean Corpuscular Hgb 30.4 pg (27.0-31.0); Mean Platelet Volume 9.3 fL (7.4-10.4); Nucleated Red Blood Cells % 0 %; Platelet Count 110 10^3/uL (130-400); Red Blood Cell Count 3.45 10^6/uL (4.20-5.40); White Blood Cell Count 2.8 10^3/uL (4.8-10.8)
[2024-12-23] MEDS: ZOLOFT 100 MG PO (08:47)
[2024-12-23] MEDS: PROTONIX 40 MG PO (08:47)
[2024-12-23] MEDS: AGGRENOX 1 CAPSULE PO (08:47)
[2024-12-23 08:54] LABS: Blood Urea Nitrogen 15 mg/dl (7-17); Calcium 8.5 mg/dl (8.4-10.2); Carbon Dioxide 26 mmol/L (22-30); Chloride 111 mmol/L (98-107); Estimated Creatinine Clearance 73 ml/min; Glucose 107 mg/dl (70-99); Potassium 3.4 mmol/L (3.5-5.1); Sodium 142 mmol/L (135-145); eGFR > 60.00
[2024-12-23] MEDS: OCEAN, SALINE MIST 2 SPRAYS NASAL (08:57)
[2024-12-23] MEDS: KCL 40 MEQ PO (09:34)
[2024-12-23 11:24] VITALS: BP 141/61
--- NOTE | 2024-12-23 12:19 | CM ---
Patient seen at bedside with physicians and patient daughter on . Patient for discharge home today, no VN needed at this time. IMM completed and placed on chart. Patient daughter to transport patient home. CM will continue to follow for
discharge planning needs.
Plan; home with no needs.
== END 2024-12-23 11:46 | disposition home or self-care (01) | DRG 872 ==
LOC: 4 WEST ACU 16:34
PROVIDERS: Physician Assistant; Student in an Organized Health Care Education/Training Program; ADMITTING PHYSICIAN Internal Medicine; ATTENDING PHYSICIAN Hospitalist; EMERGENCY PHYSICIAN Emergency Medicine; FAMILY PHYSICIAN Family Medicine; OTHER PHYSICIAN Internal Medicine Infectious Disease
DX: A41.9 Sepsis, unspecified organism (principal); N12 Tubulo-interstitial nephritis, not specified as acute or chronic; D61.818 Other pancytopenia; Z11.52 Encounter for screening for COVID-19; R09.02 Hypoxemia; R06.89 Other abnormalities of breathing; F32.A Depression, unspecified; Z66 Do not resuscitate; E78.00 Pure hypercholesterolemia, unspecified; Z60.2 Problems related to living alone
CPT/HCPCS: 51701; 71046; 74177; 80048; 80053; 81003; 81015; 83605; 85025; 87040; 87077; 87086; 87186; 87502; 87811; 93005; 96374; 99285; Q9967

== ENCOUNTER → 2024-12-31 08:55 | Outpatient (REF) | payer MEDICARE, OTHER, SELFPAY ==
[2024-12-31 11:34] LABS: % Basophils 0.9 % (0-2); % Immature Granulocytes 0.4 % (0-0.5); % Lymphocytes 15.5 % (20.5-51.1); % Monocytes 10.3 % (1.7-9.3); % Neutrophils 70.9 % (42.2-75.2); Absolute Eosinophils 0.1 10^3/uL (0-0.7); Absolute Lymphocytes 0.7 10^3/uL (1.2-3.4); Absolute Monocytes 0.5 10^3/uL (0.1-0.6); Absolute Neutrophils 3.2 10^3/uL (1.4-6.5); Hematocrit 36.3 % (37.0-47.0); Hemoglobin 12.3 g/dL (12.0-16.0); Mean Corp Hgb Conc. 33.9 g/dL (33.0-37.0); Mean Corpuscular Hgb 30.8 pg (27.0-31.0); Mean Platelet Volume 9.2 fL (7.4-10.4); Nucleated Red Blood Cells % 0 %; Platelet Count 216 10^3/uL (130-400); Red Blood Cell Count 3.99 10^6/uL (4.20-5.40); Red Cell Dist. Width 12.1 % (11.5-14.5); White Blood Cell Count 4.5 10^3/uL (4.8-10.8)
== END ==
LOC: HWLAB 08:55
PROVIDERS: ATTENDING PHYSICIAN Student in an Organized Health Care Education/Training Program; FAMILY PHYSICIAN Family Medicine
DX: D72.818 Other decreased white blood cell count (principal)
CPT/HCPCS: 36415; 85025

== ENCOUNTER → 2025-02-16 13:20 | Outpatient (REF) | payer MEDICARE, OTHER, SELFPAY ==
[2025-02-16 15:51] LABS: Urine Character Clear (Clear)
[2025-02-16 16:02] LABS: Urine Red Blood Cell 0-2 /HPF (0-2); Urine White Cell 26-30 /HPF (0-5)
== END ==
LOC: HWLAB 13:20
PROVIDERS: ATTENDING PHYSICIAN Specialist; FAMILY PHYSICIAN Family Medicine
DX: N30.00 Acute cystitis without hematuria (principal)
CPT/HCPCS: 81003; 81015; 87086

== ENCOUNTER → 2025-02-22 10:13 | Outpatient (REF) | payer MEDICARE, OTHER, SELFPAY ==
[2025-02-22 17:35] LABS: Urine Character Slightly Cloudy (Clear)
[2025-02-22 17:53] LABS: Urine Squamous Cell 0-2 /LPF (Few)
[2025-02-22 17:54] LABS: Urine White Cell 80-90 /HPF (0-5)
== END ==
LOC: CLAB 10:13
PROVIDERS: ATTENDING PHYSICIAN Specialist
DX: N39.0 Urinary tract infection, site not specified (principal)
CPT/HCPCS: 81003; 81015; 87077; 87086; 87186

== ENCOUNTER → 2025-04-06 13:37 | Outpatient (REF) | payer MEDICARE, OTHER, SELFPAY ==
[2025-04-06 17:38] LABS: Urine Character Clear (Clear)
== END ==
LOC: CLAB 13:37
PROVIDERS: ATTENDING PHYSICIAN Specialist
DX: N39.0 Urinary tract infection, site not specified (principal)
CPT/HCPCS: 81003; 87086

== ENCOUNTER → 2025-06-13 13:26 | Outpatient (REF) | payer MEDICARE, OTHER, SELFPAY ==
[2025-06-13 17:27] LABS: Urine Character Cloudy (Clear)
[2025-06-13 17:35] LABS: Urine Squamous Cell 0-2 /LPF (Few)
[2025-06-13 17:36] LABS: Urine White Cell 70-80 /HPF (0-5)
== END ==
LOC: CLAB 13:26
PROVIDERS: ATTENDING PHYSICIAN Specialist
DX: N39.0 Urinary tract infection, site not specified (principal)
CPT/HCPCS: 81003; 81015; 87086

== ENCOUNTER → 2025-06-14 10:13 | Outpatient (REF) | payer MEDICARE, OTHER, SELFPAY ==
[2025-06-14 12:07] LABS: Hematocrit 40.7 % (37.0-47.0); Hemoglobin 13.2 g/dL (12.0-16.0); Mean Corp Hgb Conc. 32.4 g/dL (33.0-37.0); Mean Corpuscular Volume 93.8 fL (81.0-99.0); Nucleated Red Blood Cells % 0 %; Platelet Count 158 10^3/uL (130-400); Red Cell Dist. Width 11.9 % (11.5-14.5)
[2025-06-14 13:45] LABS: ALT (SGPT) 21 U/L (0-35); AST (SGOT) 24 U/L (14-36); Albumin 4.2 g/dl (3.5-5.0); Alkaline Phosphatase 62 U/L (38-126); Blood Urea Nitrogen 24 mg/dl (7-17); Calcium 9.3 mg/dl (8.4-10.2); Carbon Dioxide 28 mmol/L (22-30); Chloride 105 mmol/L (98-107); Glucose 99 mg/dl (70-99); Potassium 3.7 mmol/L (3.5-5.1); Sodium 137 mmol/L (135-145); Total Protein 6.7 g/dl (6.3-8.2); eGFR > 60.00
== END ==
LOC: HWLAB 10:13
PROVIDERS: ATTENDING PHYSICIAN Specialist; FAMILY PHYSICIAN Family Medicine
DX: N30.20 Other chronic cystitis without hematuria (principal)
CPT/HCPCS: 36415; 80053; 85025

== ENCOUNTER → 2025-06-15 12:15 | Outpatient (REF) | payer MEDICARE, OTHER, SELFPAY | LOC: CLAB 12:15 | PROVIDERS: ATTENDING PHYSICIAN Specialist | DX: R31.29 Other microscopic hematuria (principal); N39.0 Urinary tract infection, site not specified | CPT/HCPCS: 87086; 88112 ==

== ENCOUNTER → 2025-06-22 12:30 | Outpatient (REF) | payer MEDICARE, OTHER, SELFPAY | LOC: RAD 12:30 | PROVIDERS: ATTENDING PHYSICIAN Specialist; FAMILY PHYSICIAN Family Medicine | DX: N30.20 Other chronic cystitis without hematuria (principal) | CPT/HCPCS: 74177; Q9967 ==